=== PATIENT | female | born 1925 | race African-American/Black ===

== ENCOUNTER 2016-04-03 12:52 | Emergency (ER) | payer MEDICARE ==
--- NOTE | 2016-04-03 13:30 | ER Document Report ---
ED Medical Screen (RME) - General Chief Complaint: General Weakness Stated Complaint: WEAKNESS,LOSS OF APPETITE Notes: 89 yo female brought to ED by EMS for c/o generalized weakness x 3-4 days. pt c /o stomach burning. no vomiting. + urinary incontinence. + headache and lower back pain. PMHx Left nephrectomy, arthritis, HTN, GI bleed. Pt recently admitted 03/25 for palpitations. Poor historian. No family with patient TRAVEL OUTSIDE OF THE [place] IN LAST 30 DAYS: No - Related Data Allergies/Adverse Reactions: No Known Allergies Allergy (Verified 04/03/16 13:04) Past Medical History - Social History Chew tobacco use (# tins/day): No Frequency of alcohol use: None Drug Abuse: None - Past Medical History Cardiac Medical History: Reports: Hx Hypertension, Hx Heart Murmur Neurological Medical History: Denies: Hx Seizures Musculoskeltal Medical History: Reports Hx Arthritis Past Surgical History: Reports: Hx Kidney (Renal Surgery) - Left nephrectomy. Denies: Hx Hysterectomy Physical Exam - Vital signs Vitals: Temp Pulse Resp BP Pulse Ox 101.1 F H 104 H 20 143/83 H 94 04/03/16 13:06 04/03/16 13:06 04/03/16 13:06 04/03/16 13:06 04/03/16 13:06 Course - Vital Signs Vital signs: Temp Pulse Resp BP Pulse Ox 101.1 F H 104 H 20 143/83 H 94 04/03/16 13:06 04/03/16 13:06 04/03/16 13:06 04/03/16 13:06 04/03/16 13:06
[2016-04-03] MEDS ORDERED: ACETAMINOPHEN 325 MG TABLET PO ONE (13:32)
[2016-04-03 14:02] LABS: ABSOLUTE MONOCYTES (AUTO) 1.6 10^3/uL (0.1-1.4); ABSOLUTE NEUT (AUTO) 7.6 10^3/uL (1.7-8.2); BASOPHILS % (AUTO) 0.3 % (0-2); EOSINOPHILS % (AUTO) 0.1 % (0-6); HEMATOCRIT 33.9 % (36.0-47.0); HEMOGLOBIN 11.2 g/dL (12.0-15.5); HGB HCT DIFFERENCE -0.3; LYMPHOCYTES % (AUTO) 9.8 % (13-45); MEAN CORPUSCULAR HEMOGLOBIN 28.4 pg (27.0-33.4); MEAN CORPUSCULAR VOLUME 86 fl (80-97); MONOCYTES % (AUTO) 15.7 % (3-13); RED BLOOD COUNT 3.93 10^6/uL (3.72-5.28); RED CELL DISTRIBUTION WIDTH 13.8 % (11.5-14.0); SEGMENTED NEUTROPHILS % (AUTO) 74.1 % (42-78); WHITE BLOOD COUNT 10.3 10^3/uL (4.0-10.5)
[2016-04-03 14:25] LABS: ALANINE AMINOTRANSFERASE 35 U/L (9-52); ALBUMIN 4.1 g/dL (3.5-5.0); ALKALINE PHOSPHATASE 68 U/L (38-126); ANION GAP 17 (5-19); ASPARTATE AMINO TRANSFERASE 26 U/L (14-36); BILIRUBIN,TOTAL 0.9 mg/dL (0.2-1.3); BLOOD UREA NITROGEN 19 mg/dL (7-20); CALCIUM 9.9 mg/dL (8.4-10.2); CARBON DIOXIDE 26 mmol/L (22-30); CHLORIDE 102 mmol/L (98-107); CREATINE KINASE 44 U/L (30-135); CREATININE RESULT 0.83 mg/dL (0.52-1.25); GLUCOSE 102 mg/dL (75-110); LIPASE 31.8 U/L (23-300); POTASSIUM 4.2 mmol/L (3.6-5.0); SODIUM 145.2 mmol/L (137-145); TOTAL PROTEIN 7.7 g/dL (6.3-8.2)
[2016-04-03 14:37] LABS: CREATINE KINASE MB 0.48 ng/mL (<4.55); TROPONIN I 0.017 ng/mL
--- NOTE | 2016-04-03 16:01 | ER Document Report ---
ED Dizziness/Weakness - General Mode of Arrival: Medic Information source: Patient, Relative TRAVEL OUTSIDE OF THE [place] IN LAST 30 DAYS: No - HPI Patient complains to provider of: Weakness Associated symptoms: Other - See above <XIAO AHUJA - Last Filed: 04/03/16 16:29> <THANH MESA - Last Filed: 04/03/16 17:55> - General Chief Complaint: General Weakness Stated Complaint: WEAKNESS,LOSS OF APPETITE Notes: Patient is an 89-year-old female, with a past medical history including nephrectomy, who presents to the emergency department via EMS with her daughter for weakness onset 3 days ago. Patient reports that she is very dizzy and has been taking tablets for her dizziness that do not help, daughter states that patient has been complaining of this dizziness for over a year. Patient also complains of abdominal pain which she describes as burning for the past 3 days, urinary incontinence, difficulty urinating and defecating, and daughter reports patient has had a poor appetite for the past 3 days and has had a rash on her back that itches which started 3 months ago. Patient denies nausea, vomiting, diarrhea, chest pain, difficulty breathing, blurred vision, headache, speech impairment, and any recent falls. (XIAO AHUJA) - Related Data Allergies/Adverse Reactions: No Known Allergies Allergy (Verified 04/03/16 13:04) Past Medical History - General Information source: Patient - Social History Smoking Status: Never Smoker Chew tobacco use (# tins/day): No Frequency of alcohol use: None Drug Abuse: None Family History: Reviewed & Not Pertinent Patient has suicidal ideation: No Patient has homicidal ideation: No - Past Medical History Cardiac Medical History: Reports: Hx Hypertension, Hx Heart Murmur Musculoskeltal Medical History: Reports Hx Arthritis Past Surgical History: Reports: Hx Kidney (Renal Surgery) - Left nephrectomy, in the 1980s <XIAO AHUJA - Last Filed: 04/03/16 16:29> Review of Systems - Review of Systems Constitutional: See HPI, Weakness EENT: denies: Blurred vision Cardiovascular: denies: Chest pain Respiratory: denies: Other - Difficulty breathing Gastrointestinal: See HPI, Abdominal pain, Poor appetite, Other - Difficulty defecating Genitourinary: See HPI, Incontinence, Other - Difficulty urinating Female Genitourinary: No symptoms reported Musculoskeletal: No symptoms reported Skin: No symptoms reported Hematologic/Lymphatic: No symptoms reported Neurological/Psychological: denies: Headaches, Speech impairment -: Yes All other systems reviewed and negative <XIAO AHUJA - Last Filed: 04/03/16 16:29> Physical Exam - Vital signs Interpretation: Normal - General General appearance: Appears well, Alert - HEENT Head: Normocephalic, Atraumatic - Respiratory Respiratory status: No respiratory distress Chest status: Nontender Breath sounds: Normal Chest palpation: Normal - Cardiovascular Rhythm: Regular Heart sounds: Normal auscultation Murmur: Yes - 4 out of 4 systolic ejection Pulses: Normal: Femoral, Dorsalis pedis - Abdominal Inspection: Normal Distension: No distension Bowel sounds: Normal Tenderness: Nontender Organomegaly: No organomegaly - Extremities General upper extremity: Normal inspection General lower extremity: Normal inspection - Neurological Neuro grossly intact: Yes Cognition: Normal Orientation: AAOx4 [place] Coma Scale Eye Opening: Spontaneous [place] Coma Scale Verbal: Oriented [place] Coma Scale Motor: Obeys Commands [place] Coma Scale Total: 15 Speech: Normal - Psychological Associated symptoms: Normal affect, Normal mood - Skin Skin Temperature: Warm Skin Moisture: Dry Skin Color: Normal Skin irregularity: Rash - Maculopapular rash diffuse across back with scaley appearance, no pustules, abscesses, cellulitis, or drainage. <XIAO AHUJA - Last Filed: 04/03/16 16:29> Course - Laboratory Result Diagrams: 04/03/16 13:40 04/03/16 13:40 <XIAO AHUJA - Last Filed: 04/03/16 16:29> - Laboratory Result Diagrams: 04/03/16 13:40 04/03/16 13:40 <THANH MESA - Last Filed: 04/03/16 17:55> - Re-evaluation Re-evalutation: 04/03/16 16:04 I personally performed the services described in the documentation, reviewed and edited the documentation which was dictated to my scribe in my presence, and it accurately records my words and actions. She presents emergency, chief complaint of generalized weakness and decreased appetite. Patient was here on 1226 for dizziness hypertension palpitations. She has a history of a GI bleed with transfusion sees a primary care nurse practitioner Philip. Has a history of GI bleed with transfusion in the past which she seen GI. Reported also have a history of nephrectomy. Patient is a poor historian vital signs she has a temperature 101.1 blood pressure stable she 's tachycardic at 104. 04/03/16 17:51 Patient is well-appearing nontoxic fevers controlled she's not hypoxic no shortness of breath no clinical concerns for pulmonary emboli chest x-ray shows consolidative pneumonia per the radiologist. Patient wants to try to go home gave her shot of Rocephin. The dizziness that she describes is been going on for years is not new or different is not associated with falling or strokelike symptoms. No neurological deficits on examination with normal ambulation at baseline. We will DC discussed with her daughter 1 day follow-up with the primary care physician and discussed reasons for ED return sooner (THANH MESA) - Vital Signs Vital signs: Temp Pulse Resp BP Pulse Ox 101.1 F H 104 H 20 143/83 H 94 04/03/16 13:06 04/03/16 13:06 04/03/16 13:06 04/03/16 13:06 04/03/16 13:06 (XIAO AHUJA) (HTANH MESA) - Laboratory Laboratory results interpreted by me: 04/03/16 04/03/16 04/03/16 13:40 13:40 16:40 Hgb 11.2 L Hct 33.9 L Lymphocytes % 9.8 L Monocytes % 15.7 H Absolute Monocytes 1.6 H Sodium 145.2 H Urine Protein 100 H Urine Ketones 20 H (XIAO AHUJA) (THANH MESA) - EKG Interpretation by Me Additional EKG results interpreted by me: 04/03/16 16:05 KG interpreted by myself to reveal a sinus rhythm at 75 bpm with a left anterior fascicular block and LVH. No acute ST segment elevation or depression 04/03/16 17:55 (THANH MESA) Discharge <XIAO AHUJA - Last Filed: 04/03/16 16:29> <THANH MESA - Last Filed: 04/03/16 17:55> - Discharge Clinical Impression: Pneumonia Qualifiers: Pneumonia type: due to unspecified organism Laterality: unspecified laterality Lung location: unspecified part of lung Qualified Code(s): J18.9 - Pneumonia, unspecified organism Condition: Stable Disposition: HOME, SELF-CARE Additional Instructions: PNEUMONIA: Your examination indicates that you have pneumonia. This is an infection of the lung tissue, usually caused by bacteria or a virus. Symptoms include cough, fever, shaking chills, chest pain, shortness of breath, and coughing up bloody sputum. Treatment for bacterial pneumonia includes rest, antibiotics for 10 to 14 days, increasing your clear liquid intake, a cool mist humidifier at your bedside, and fever medication. Often, a repeat chest X-ray is performed in a few weeks--even if you feel better--to ascertain whether the infection has completely resolved and no underlying lung problem is present. You should call the physician if you develop persistent vomiting, high fever that does not respond to fever medication, increasing shortness of breath , confusion, or lethargy. Also, failure to improve within two to three days is an indication for re-examination. ANTIBIOTIC INJECTION: You have been given an antibiotic injection. Sometimes the injection must be combined with antibiotic pills. For some infections, the shot provides all the antibiotic that's needed. Common side effects of antibiotics include nausea, intestinal cramping, or diarrhea. These are very unusual following a shot. Women may develop vaginal yeast infections, and babies can get yeast ( thrush) in the mouth following the use of antibiotics. Contact your physician if you develop significant side effects from this medication. Allergy to this antibiotic can result in hives, wheezing, faintness, or itching. If symptoms of allergy occur, call the doctor at once. ROCEPHIN: You have been given an injection of an antibiotic called Rocephin ( ceftriaxone). Sometimes the injection must be combined with antibiotic pills. For some infections, such as an uncomplicated ear infection, Rocephin provides all the antibiotic that's needed. The antibiotic will be in your body for about two days. For serious infections, we usually repeat doses of Rocephin daily. Side effects are very unusual following a shot. Women may develop vaginal yeast infections, and babies can get yeast (thrush) in the mouth following the use of antibiotics. Contact your physician if you have symptoms with this medication. Allergy to this antibiotic can result in hives, wheezing, faintness, or itching. If symptoms of allergy occur, call the doctor at once. ANTIBIOTIC THERAPY: You have been given an antibiotic prescription. It's important that you take all the medication, unless instructed otherwise by your physician. Failure to complete the entire course can result in relapse of your condition. Common side effects of antibiotics include nausea, intestinal cramping, or diarrhea. Women may develop vaginal yeast infections, and babies can get yeast (thrush) in the mouth following the use of antibiotics. Contact your physician if you develop significant side effects from this medication. Allergy to this antibiotic can result in hives, wheezing, faintness, or itching. If symptoms of allergy occur, stop the medication and call the doctor. USE OF ACETAMINOPHEN (Tylenol): Acetaminophen may be taken for pain relief or fever control. It's much safer than aspirin, offering a wider range of "safe" dosages. It is safe during . Some brand names are Tylenol, Panadol, Datril, Anacin 3, Tempra, and Liquiprin. Acetaminophen can be repeated every four hours. The following are maximum recommended dosages: WEIGHT Dose Drops Elixir Chewable( 80mg) (LBS.) drprs=droppers tsp=teaspoon 6 40 mg 0.4 ml (1/2) 6-11 80 mg 0.8 ml (full) tsp 1 tab 12-16 120 mg 1 1/2 drprs 3/4 tsp 1 1/2 tabs 17-23 160 mg 2 drprs 1 tsp 2 tabs 24-30 240 mg 3 drprs 1 1/2 tsp 3 tabs 30-35 320 mg 2 tsp 4 tabs 36-41 360 mg 2 1/4 tsp 4 1/2 tabs 42-47 400 mg 2 1/2 tsp 5 tabs 48-53 480 mg 3 tsp 6 tabs 54-59 520 mg 3 1/4 tsp 6 1/2 tabs 60-64 560 mg 3 1/2 tsp 7 tabs 65-70 600 mg 3 3/4 tsp 7 1/2 tabs 71-76 640 mg 4 tsp 8 tabs 77-82 720 mg 4 1/2 tsp 9 tabs 83-88 800 mg 5 tsp 10 tabs >89 pounds or adults 650 mg to 900 mg Acetaminophen can be repeated every four hours. Maximum dose not to exceed 4000 mg a day. These maximum recommended dosages are slightly higher than the dosages written on the product container, but these dosages are very safe and below the toxic dosage for acetaminophen. FOLLOW-UP CARE: If you have been referred to a physician for follow-up care, call the physician s office for an appointment as you were instructed or within the next two days. If you experience worsening or a significant change in your symptoms, notify the physician immediately or return to the Emergency Department at any time for re-evaluation. Prescriptions: Amox Tr/Potassium Clavulanate [Augmentin 875-125 Tablet] 1 tab PO BID 7 Days Referrals: THOMAS JIMENEZ DI[facility] OPERATOR [Primary Care Provider] - Follow up tomorrow ( Follow-up with your primary care physician tomorrow return for increasing worsening or new symptoms) Scribe Documentation - Scribe Written by Yaima:: yaima Baca, 04/03/16, 1645 acting as scribe for :: Antwan <XIAO AHUJA - Last Filed: 04/03/16 16:29>
[2016-04-03] MEDS ORDERED: NORMAL SALINE 1000 ML 1,000 ML IV ONE (16:03)
--- NOTE | 2016-04-03 16:05 | EKG REPORT ---
SEVERITY:- ABNORMAL ECG - SINUS RHYTHM PROBABLE LEFT ATRIAL ABNORMALITY LEFT ANTERIOR FASCICULAR BLOCK LVH WITH SECONDARY REPOLARIZATION ABNORMALITY CONSIDER ANTERIOR INFARCT : Confirmed by: Fanny Carpio 03-Apr-2016 16:03:34
[2016-04-03 17:08] LABS: APPEARANCE,URINE SLIGHTLY-CLOUDY; BILIRUBIN,URINE NEGATIVE (NEGATIVE); GLUCOSE, URINE NEGATIVE (NEGATIVE); KETONES,URINE 20 mg/dL (NEGATIVE); LEUKOCYTE ESTERASE,URINE NEGATIVE (NEGATIVE); NITRITE,URINE NEGATIVE (NEGATIVE); PROTEIN,URINE 100 mg/dL (NEGATIVE); TRIPLE PHOSPHATE CRYSTAL,URINE FEW /HPF; URINE SPECIFIC GRAVITY 1.015; UROBILINOGEN,URINE NEGATIVE mg/dL (<2.0)
[2016-04-03] MEDS ORDERED: CEFTRIAXONE INJ 1000 MG VIAL IM ONE (17:50)
[2016-04-03] MEDS ORDERED: LIDOCAINE 1% INJ-PF (10 MG/ML) 30 ML SDV ONE (18:18)
[2016-04-03 18:35] VITALS: BP 161/97
== END 2016-04-03 18:35 | disposition home or self-care (01) ==
LOC: ER 12:52
DX: J18.9 Pneumonia, unspecified organism (principal); R53.1 Weakness; R42 Dizziness and giddiness; I10 Essential (primary) hypertension; R10.9 Unspecified abdominal pain; R32 Unspecified urinary incontinence; Z90.5 Acquired absence of kidney
CPT/HCPCS: 93005; 99285; 36415; 87040; 87086; 82553; 82550; 83690; 85025; 87088; 80053; 81001; 84484; 87186; 83605; 71020; 93010; A9270; J0696; J7030

== ENCOUNTER 2016-04-10 10:20 | Emergency (ER) | payer MEDICARE ==
[2016-04-10 12:52] LABS: ABSOLUTE EOSINOPHILS # (AUTO) 0.1 10^3/uL (0.0-0.6); ABSOLUTE LYMPHOCYTES (AUTO) 0.8 10^3/uL (0.5-4.7); BASOPHILS % (AUTO) 0.3 % (0-2); EOSINOPHILS % (AUTO) 0.9 % (0-6); HEMATOCRIT 28.4 % (36.0-47.0); HEMOGLOBIN 9.4 g/dL (12.0-15.5); HGB HCT DIFFERENCE -0.2; LYMPHOCYTES % (AUTO) 11.3 % (13-45); MEAN CORPUSCULAR HEMOGLOBIN 28.4 pg (27.0-33.4); MEAN CORPUSCULAR VOLUME 86 fl (80-97); RED CELL DISTRIBUTION WIDTH 13.3 % (11.5-14.0); SEGMENTED NEUTROPHILS % (AUTO) 73.5 % (42-78); WHITE BLOOD COUNT 6.8 10^3/uL (4.0-10.5)
[2016-04-10] MEDS ORDERED: NORMAL SALINE 1000 ML 1,000 ML IV ONE (13:06)
[2016-04-10 13:12] LABS: ALANINE AMINOTRANSFERASE 31 U/L (9-52); ALBUMIN 3.9 g/dL (3.5-5.0); ALKALINE PHOSPHATASE 107 U/L (38-126); ANION GAP 16 (5-19); ASPARTATE AMINO TRANSFERASE 23 U/L (14-36); BILIRUBIN,TOTAL 0.8 mg/dL (0.2-1.3); BLOOD UREA NITROGEN 22 mg/dL (7-20); CALCIUM 9.7 mg/dL (8.4-10.2); CARBON DIOXIDE 25 mmol/L (22-30); CHLORIDE 105 mmol/L (98-107); CREATININE RESULT 0.96 mg/dL (0.52-1.25); GLUCOSE 88 mg/dL (75-110); POTASSIUM 4.3 mmol/L (3.6-5.0); SODIUM 146.2 mmol/L (137-145); TOTAL PROTEIN 7.2 g/dL (6.3-8.2)
[2016-04-10 16:58] LABS: APPEARANCE,URINE CLOUDY; BILIRUBIN,URINE NEGATIVE (NEGATIVE); GLUCOSE, URINE NEGATIVE (NEGATIVE); KETONES,URINE 20 mg/dL (NEGATIVE); LEUKOCYTE ESTERASE,URINE SMALL (NEGATIVE); NITRITE,URINE NEGATIVE (NEGATIVE); PROTEIN,URINE 100 mg/dL (NEGATIVE); URINE SPECIFIC GRAVITY 1.014; UROBILINOGEN,URINE NEGATIVE mg/dL (<2.0)
--- NOTE | 2016-04-10 17:08 | ER Document Report ---
ED General - General Chief Complaint: Flank Pain Stated Complaint: FLANK PAIN Notes: This is in a 10-year-old female who presents from home where she had an episode of sharp left flank pain lasting approximately 30 minutes. She is pain-free at this time. She states the pain was triggered by certain movement. She states it would not release. She's had similar pains in the past but never lasted that long. She was recently seen for left sided pneumonia as well as urinary tract infection and is taking antibiotics. Patient states she's been feeling better although still having temperature of 99.9. She's had adequate by mouth intake and normal urine output. Normal stools. She denies any shortness of breath. No leg pain or swelling. TRAVEL OUTSIDE OF THE [place] IN LAST 30 DAYS: No - Related Data Allergies/Adverse Reactions: No Known Allergies Allergy (Verified 04/03/16 13:04) Past Medical History - General Information source: Patient - Social History Smoking Status: Never Smoker Frequency of alcohol use: None Drug Abuse: None Family History: Reviewed & Not Pertinent Patient has suicidal ideation: No Patient has homicidal ideation: No - Past Medical History Cardiac Medical History: Reports: Hx Hypertension, Hx Heart Murmur Neurological Medical History: Denies: Hx Seizures Musculoskeltal Medical History: Reports Hx Arthritis Past Surgical History: Reports: Hx Kidney (Renal Surgery) - Left nephrectomy, in the 1980s. Denies: Hx Hysterectomy Review of Systems - Review of Systems Constitutional: denies: Fever Cardiovascular: denies: Palpitations, Syncope Respiratory: denies: Short of breath Gastrointestinal: denies: Vomiting Genitourinary: denies: Burning Skin: denies: Rash Hematologic/Lymphatic: denies: Swollen glands Neurological/Psychological: denies: Numbness, Tingling Physical Exam - Vital signs Vitals: Temp Pulse Resp BP Pulse Ox 99.3 F 102 H 20 135/82 H 100 04/10/16 10:34 04/10/16 10:34 04/10/16 10:34 04/10/16 10:34 04/10/16 10:34 - General General appearance: Appears well, Alert In distress: None - HEENT Head: Normocephalic Pupils: PERRL Mucous membranes: Normal Pharynx: Normal - Respiratory Respiratory status: No respiratory distress Chest status: Nontender Breath sounds: Normal Chest palpation: Normal. No: Subcutaneous emphysema - Cardiovascular Rhythm: Regular Murmur: Yes - Abdominal Inspection: Normal Tenderness: Nontender - Back Back: Normal - Extremities General upper extremity: Normal inspection General lower extremity: Normal inspection - Neurological Neuro grossly intact: Yes Orientation: AAOx4 Motor strength normal: LUE, RUE, LLE, RLE - Psychological Associated symptoms: Normal affect - Skin Skin Temperature: Warm Skin Moisture: Dry Skin Color: Normal Course - Re-evaluation Re-evalutation: 04/10/16 19:45 Patient is not having any pain at this time. Her labs and imaging are reassuring. Her x-rays consistent with a resolving pneumonia. - Vital Signs Vital signs: Temp Pulse Resp BP Pulse Ox 98.7 F 82 16 184/81 H 100 04/10/16 17:00 04/10/16 17:00 04/10/16 17:00 04/10/16 17:00 04/10/16 17:00 - Laboratory Result Diagrams: 04/10/16 12:40 04/10/16 12:40 Laboratory results interpreted by me: 04/10/16 04/10/16 04/10/16 12:40 12:40 16:17 RBC 3.30 L Hgb 9.4 L Hct 28.4 L Lymphocytes % 11.3 L Monocytes % 14.0 H Sodium 146.2 H BUN 22 H Est GFR (Non-Af Amer) 55 L Urine Protein 100 H Urine Ketones 20 H Ur Leukocyte Esterase SMALL H - EKG Interpretation by Me EKG shows normal: Sinus rhythm Discharge - Discharge Clinical Impression: Left sided chest pain Condition: Good Disposition: HOME, SELF-CARE Additional Instructions: return if you have fever, shortness of breath, or any severe or persistent pain not relieved by your usual pain regimen (Tylenol, etc.) Referrals: THOMAS JIMENEZ [facility] [employer] REFEREE [Primary Care Provider] - Follow up as needed
[2016-04-10 17:43] VITALS: BP 184/81
== END 2016-04-10 17:43 | disposition home or self-care (01) ==
LOC: ER 10:20
DX: R07.89 Other chest pain (principal); R10.9 Unspecified abdominal pain; Z90.5 Acquired absence of kidney
CPT/HCPCS: 99284; 96360; 36415; 87040; 87086; 85025; 87088; 80053; 81001; 71020; J7030; 87186